=== PATIENT | male | born 1990 | race Two or more races ===

== ENCOUNTER 2025-10-21 15:29 | Outpatient (CLI) | payer OTHER, SELFPAY ==
[2025-10-21 23:06] LABS: GC DNA Amplified* NOT DETECTED (No Detected)
[2025-10-21 23:27] LABS: Chlamydia DNA Amplified* DETECTED (No Detected)
== END 2025-10-21 15:30 | disposition home or self-care (01) ==
PROVIDERS: Visit Provider Physician Assistant
DX: Z11.3 Encounter for screening for infections with a predominantly sexual mode of transmission (principal)
CPT/HCPCS: 86703; 87491; 87591